=== PATIENT | male | born 1990 | race Caucasian/White ===

== ENCOUNTER 2021-06-12 11:02 | Outpatient (REF) | payer BC, MEDICAID, SELFPAY ==
--- NOTE | 2021-06-14 14:55 | MHC.AU.AHA ---
Adult Audiological Evaluation Date of Visit: 06/12/21 Otm Consultant Used: Not Applicable Reason for Appointment: Audiologic evaluation due to history of permanent bilateral hearing loss identified at age 1 years. Oscar has been using a very old right Oticon Personic [id number] hearing aid. He reports approximately 2 years ago he received, through his medical insurance, binaural Oticon OPN 2 ultra power qaqduasi-qh-fsu-ear hearing aids; however, he does not hear well with these aids and has gone back to wearing the old Personic aid. Oscar had gone back to the land measurer for adjustments with no improvement and he would like to obtain new binaural hearing aids. Previous Hearing Test Results: Not available for review Ear History: Family History of Hearing Loss?: Yes: Brother and Daughter Ear Infections in Childhood: Both Ears Bothersome Tinnitus/Ringing/Noises in Ears: Left Ear Ear used on the phone: Right Ear History of occupational noise exposure?: Yes History: History: No Medical History: Medical History: Migraines and Tobacco Use Medication List: None Hearing Instrument History- Right Ear: Contact Centre Supervisor: Oticon Model: Personic BTE Battery Size: 13 Repair Warranty: Otoscopy: Right Ear: Clear ear canal with dull/scarred tympanic membrane Left Ear: Unremarkable Tympanometry: Tympanometry performed due to: To assess integrity of the middle ear system Right Ear: Normal Middle Ear System (Type A) Left Ear: Normal Middle Ear System (Type A) Hearing Evaluation: Transducer(s) Used: Insert Earphones Bone Conduction Method: Conventional Audiometry Stimuli Used: Pure Tones Right Ear: Description of Hearing: Severe sensorineural hearing loss 250-3000 Hz, rising to a moderate loss at 8000 Hz Left Ear: Description of Hearing: Severe sensorineural hearing loss 250-3000 Hz, rising to a moderate loss at 8000 Hz Speech Recognition Threshold (SRT): Method Used: Monitored Live Voice Stimuli Used: Spondee Words Right Ear: 60 dB HL Left Ear: 60 dB HL Word Discrimination: Method: Recorded Lists Word Lists Used: NU-6 Right Ear: 76% at 85 dB HL Left Ear: 64% at 85 dB HL Most Comfortable Level (MCL): Right Ear: 85 dB HL Left Ear: 85 dB HL Recommendations: - Hearing aid maintenance performed today. - Trial with new binaural amplification is recommended. - A right Phonak Catherine UP BTE hearing aid was demonstrated in office today. Although sound quality is very different compared to his old analog hearing aid, Oscar reported improvement compared to the Oticon aids. - Oscar has different insurance now which does not cover hearing aids. He is advised to contact the [place] [facility] ([facility]) to determine if he is eligible through the program for new hearing aids. - If pursuing new hearing aids either through [facility] or purchasing aids on his own, he may schedule a Hearing Aid Evaluation appointment. - Audiological re-evaluation in one year. Will send a reminder card. Diagnosis: Primary Diagnosis: H90.3 Bilateral Sensorineural Hearing Loss Services Performed: Comprehensive Audiological Evaluation (CPT 21260) Tympanometry (CPT 77040) Signature: Provider: Papi Rudd, CCC-A
== END 2021-06-12 11:03 | disposition home or self-care (01) ==
LOC: HO.SH 11:02
PROVIDERS: Visit Provider Internal Medicine
DX: H90.3 Sensorineural hearing loss, bilateral (principal)
CPT/HCPCS: 92557; 92567

== ENCOUNTER 2022-07-10 09:26 | Outpatient (REF) | payer BC, OTHER, SELFPAY ==
--- NOTE | 2022-07-10 10:25 | MHC.AU.MED ---
Medical Clearance for Hearing Instrumentation Date: 07/10/22 Patient Name: Oscar Zuleta Date of : 1990 Primary Care Provider: Storm Castañeda MD We have seen your patient on 07/10/22 and have determined that they are a candidate for amplification (See accompanying report). Specifically, they would benefit from: Hearing aid use in both ears There is a statute that addresses Medical Evaluation Requirements prior to fitting a patient with a hearing aid. According to [place] statute [facility] CMR:6.03(1), (a) General. Except as provided in 265 CMR 6.03(1)(b), a network firewall engineer shall not sell a hearing aid unless the prospective user has presented to the network firewall engineer a written statement signed by a licensed physician that states that the patient's hearing loss has been medically evaluated and the patient may be considered a candidate for a hearing aid. The medical evaluation must have taken place within the preceding six months. Please note: Due to the [place] Statute referenced above, we cannot accept a signature other than that of a licensed physician. TARIFF INSPECTOR and PA signatures cannot be accepted. I am in agreement with the above recommendation. There is no medical contraindication for hearing instrumentation. Physician Signature Date Physician Name (Printed)
--- NOTE | 2022-07-10 10:46 | MHC.AU.FUR ---
Hearing Instrument Follow-Up Date of Visit: 07/10/22 Right Ear: Oticon Personic BTE Battery Size: 13 Type of Mold: Silicone skeleton Follow-Up Summary: Oscar returned to discuss new hearing aids. He currently uses his old Oticon Personic BTE on his right ear. He also has a pair of Oticon OPN 2 RITEs with ultra power receivers that he did not bring to this appointment. He reportedly never acclimated to them and prefers to use his old BTE hearing aid. His old hearing aid recently broke at the junction between the hearing aid and knob to thread on the tone hook. Oscar reported he has glued the pieces back together and it has been working ever since. Recommended cleaning and tubing change but explained cannot be responsible if hearing aid breaks. Oscar did not want a cleaning or tubing change at this time. He reported that his insurance is changing September 09, 2022 and would like to wait to pursue new hearing aids to utilize a better hearing aid benefit through the new insurance. Offered a loaner to use in the meantime; however, Oscar did not want to risk transferring his earmold and breaking the Personic hearing aid. Recommendations: Medical clearance will be requested from PCP. Oscar will call at the beginning of the year with new insurance information. Once benefits are verified, he will schedule an appointment for a hearing aid evaluation. Oscar knows his hearing test is valid for six months. Diagnosis Code(s): Primary Diagnosis: H90.3 Bilateral Sensorineural Hearing Loss Signature: Provider: Luis A Browning, [facility]
== END 2022-07-10 09:27 | disposition home or self-care (01) ==
LOC: HO.SH 09:26
PROVIDERS: Visit Provider Internal Medicine
DX: Z01.118 Encounter for examination of ears and hearing with other abnormal findings (principal); H90.3 Sensorineural hearing loss, bilateral
CPT/HCPCS: 92557

== ENCOUNTER 2022-09-24 09:31 | Outpatient (REF) | payer BC, OTHER, SELFPAY ==
--- NOTE | 2022-09-28 13:08 | MHC.AU.HA1 ---
Hearing Aid Evaluation Date of Visit: 09/24/22 Historical Information: Description of Hearing: Bilateral severe sensorineural hearing loss from 250-4000 Hz rising to moderate sensorineural hearing loss at 8000 Hz with 76- 80% speech discrimination at 100 dB HL. Current personal amplification information, if applicable: Right - Oticon Personic BTE. Summary: Patient reports he received Oticon OPN 2 RITE aids through his insurance in 2019, but was never able to used to them so he has continued to use his old Personic aid in the right ear. Due to the age of his current aid, the degree of his hearing loss, and the fact he is only using one aid, new binaural power hearing aids are recommended to better facilitate communication. Advise Phonak power aids as the software is easier to manipulate to change processing of aids to be more like his current aid. Hearing Aid Prescription: Based on the individual?s shared listening needs, communication environments, dexterity, desire for connectivity, and personal preferences, the following prescription for amplification has been made: Right ear: Make, Model, Color: Phonak Audeo L 70-R Black Battery Size: Rechargeable Family Resource Management Professor/Slim Tube: #2 UP Type of Earmold/Dome/CShell/SlimTip: Phonak Canal Lock C-Shell Left ear:Left ear prescription to be same as Right Hearing Aid above: Make, Model, Color: Phonak Audeo L 70-R Black Battery Size: Rechargeable Family Resource Management Professor/Slim Tube: #2 UP Type of Earmold/Dome/CShell/SlimTip: Phonak Canal Lock C-Shell Plan of Care: Patient wishes to purchase hearing aids as prescribed Action Taken/Action Needed:Earmold Impressions Taken Hearing Instrument Fitting to be scheduled when materials arrive Comments: Medical Clearance is in chart Primary Diagnosis: H90.3 Bilateral Sensorineural Hearing Loss Signature:Provider: Luis A Rudd, [facility]
== END 2022-09-24 09:32 | disposition home or self-care (01) ==
LOC: HO.HAP 09:31
PROVIDERS: Visit Provider Internal Medicine
DX: Z46.1 Encounter for fitting and adjustment of hearing aid (principal); H90.3 Sensorineural hearing loss, bilateral
CPT/HCPCS: 92591; V5275

== ENCOUNTER 2022-10-22 09:33 | Outpatient (REF) | payer BC, OTHER, SELFPAY ==
--- NOTE | 2022-10-22 09:37 | MHC.AU.NMH ---
Hearing Aid Delivery Receipt: Third Constitution Party Payor [facility] type [place] [facility] Other: Date of Fitting: End of Adjustment Period: 30 days from date of fitting Azure Developer: Right Ear: Left Ear: Make, Model, Serial Number and Color: Phonak Audeo L 70-R Black Serial #[id number] Make, Model, Serial Number and Color: Phonak Audeo L 70-R Black Serial #[id number] Ball Warper Tender/Slim Tube: #2 UP Ball Warper Tender/Slim Tube: #2 UP Earmold/Dome/CShell/SlimTip: Phonak Canal Lock C-Shell #[id number] warranty 01/07/2023 Earmold/Dome/CShell/SlimTip: Phonak Canal Lock C-Shell #[id number] warranty 01/07/2023 Type of Wax Guard: CeruShield Disk Type of Wax Guard: CeruShield Disk Battery Size: Rechargeable Battery Size: Rechargeable Chemical Inspector Repair Warranty: 01/08/2026 Chemical Inspector Repair Warranty: 01/08/2026 Chemical Inspector Loss and Damage Warranty: 01/08/2026 Chemical Inspector Loss and Damage Warranty: 01/08/2026 [facility] Service Agreement ends one year from date of fitting on? 10/22/2023 [facility] Service Agreement ends one year from date of fitting on 10/22/2023 Accessories/Assistive Technology: Following the expiration of [facility]?s service agreement, charges for items and services listed above are billed at the usual and customary rate. *If coverage by third democrat payor exists, medically necessary modifications, repairs, etc. will be billed to said third democrat payor. If there is no third democrat payor eligibility beyond the service agreement or tool worker warranty periods, items will be billed per usual and customary rates and payment is expected at the time of service. Hearing aids that are lost or damaged beyond repair cannot be returned for credit, and the synchronous motor assembler is liable for the full purchase arriaga. My signature below acknowledges that I have read and understand this hearing aid contract and have received the goods and services out lined above. ?Date? Home Address: ? PATIENT STICKER ? This hearing aid will not restore normal hearing nor will it prevent further hearing loss. The sale of a hearing aid is restricted to those individuals who have obtained a medical evaluation from a licensed physician or marketing automation analyst. A fully informed adult whose tenriism or personal beliefs preclude consultation with a physician may waive the requirement of a medical evaluation. The exercise of such a waiver is not in your best health interest and its use is strongly discouraged. It is also required that a person under the age of eighteen years obtain an evaluation by an child and family therapist in addition to the medical evaluation before a hearing aid can be sold to such person. Shameka Young,Title XV,Chapter 93:74
== END 2022-10-22 09:34 | disposition home or self-care (01) ==
LOC: HO.HAP 09:33
PROVIDERS: Visit Provider Internal Medicine
DX: Z46.1 Encounter for fitting and adjustment of hearing aid (principal); H90.3 Sensorineural hearing loss, bilateral
CPT/HCPCS: V5011; V5020; V5160; V5261; V5264

== ENCOUNTER 2022-11-15 10:40 | Outpatient (REF) | payer BC, OTHER, SELFPAY ==
--- NOTE | 2022-11-16 13:21 | MHC.AU.HA3 ---
Hearing Instrument Follow-Up- Binaural Date of Visit: 11/15/22 Right Ear: Neal, Model, Color, Serial Number: Devin Barrientos L 70-R Black Serial #[id number] Cardiology Specialist Repair Warranty: 01/08/2026 Cardiology Specialist Loss and Damage Warranty: 01/08/2026 [facility] Service Plan: 10/22/2023 Battery Size: Rechargeable Piano Sounding Board Matcher/Slim Tube: #2 UP Earmold/Dome/CShell/SlimTip:Phonak Canal Lock C-Shell #[id number] remake warranty 01/07/2023 Type of Wax Guard: CeruShield Disk Dispensed By: [facility], Date of Fittin10/22/2022 Left Ear: Neal, Model, Color, Serial Number: Devin Ruggieroo L 70-R John Serial #[id number] Cardiology Specialist Repair Warranty: 01/08/2026 Cardiology Specialist Loss and Damage Warranty: 01/08/2026 [facility] Service Plan: 10/22/2023 Battery Size: Rechargeable Piano Sounding Board Matcher/Slim Tube: #2 UP Earmold/Dome/CShell/SlimTip: Phonak Canal Lock C-Shell #[id number] remake warranty 01/07/2023 Type of Wax Guard: CeruShield Disk Dispensed By: [facility], Date of Fittin10/22/2022 Follow-Up Summary: Hearing aid follow-up: Patient has switched back to using his Oticon Personic BTE. He felt he was hearing worse with the new hearing aids. At work, he felt machinery sounded much louder than before, and that people sounded like they were far away. At home, he has been having more difficulty hearing the television and finds that other sounds like running water or the vacuum seem to overpower and muffle everything else. He feels he hears best with them when he is outside. He has been constantly using the rachel to make adjustments to suit the needs of each situation throughout the day. Patient has been using linear analog hearing aids since he was 1 years old. In [employer], we went through all the programming algorithms to see which one he liked the best. He preferred NAL-NL 1. Raised the overall gain until patient felt it was comfortable. Recommendations: He will try the hearing aids again and follow-up in a couple weeks. If he still does not like them, we could explore other hearing aid options while he is still in the trial period. Diagnosis Code(s): Primary Diagnosis: H90.3 Bilateral Sensorineural Hearing Loss Signature: Provider: Luis A King, CCC-A
== END 2022-11-15 10:41 | disposition home or self-care (01) ==
LOC: HO.HAP 10:40
PROVIDERS: Visit Provider Internal Medicine
DX: Z13.89 Encounter for screening for other disorder (principal)

== ENCOUNTER 2022-12-11 12:31 | Outpatient (REF) | payer BC, OTHER, SELFPAY ==
--- NOTE | 2022-12-11 13:45 | MHC.AU.HA3 ---
Hearing Instrument Follow-Up- Binaural Date of Visit: 12/11/22 Right Ear: Make, Model, Color, Serial Number: Phonak Bhumikaeo L 70-R Black Serial #[id number] Erp Business Analyst Repair Warranty: 01/08/2026 Erp Business Analyst Loss and Damage Warranty: 01/08/2026 [facility] Service Plan: 10/22/2023 Battery Size: Rechargeable Station Detective/Slim Tube: #2 UP Earmold/Dome/CShell/SlimTip:Phonak Canal Lock C-Shell #[id number] remake warranty 01/07/2023 Type of Wax Guard: CeruShield Disk Dispensed By: [facility] Date of Fittin10/22/2022 Left Ear: Make, Model, Color, Serial Number: Phonak Bhumikaeo L 70-R Black Serial #[id number] Erp Business Analyst Repair Warranty: 01/08/2026 Erp Business Analyst Loss and Damage Warranty: 01/08/2026 [facility] Service Plan: 10/22/2023 Battery Size: Rechargeable Station Detective/Slim Tube: #2 UP Earmold/Dome/CShell/SlimTip: Phonak Canal Lock C-Shell #[id number] remake warranty 01/07/2023 Type of Wax Guard: CeruShield Disk Dispensed By: [facility] Date of Fittin10/22/2022 Follow-Up Summary: Patient continues to have significant difficulty with the sound quality and reports less clarity of speech than previous. [facility] Jillian connected remotely. Made several changes including (but also more) going back to Phonak Adaptive Contrast fitting formula, increasing and decreasing the MPO for individual frequencies to be close to the black line (maximum level) to decrease potential of distortion yet be louder for patient. Added Manual Speech in Noise and Speech in Loud Noise programs. Patient will try and scheduled follow-up. Extended Trial Period to 02/07/2023 per Kelly Diagnosis Code(s):Primary Diagnosis: H90.3 Bilateral Sensorineural Hearing Loss Signature:Provider: Luis A Rudd, [facility]
== END 2022-12-11 12:32 | disposition home or self-care (01) ==
LOC: HO.HAP 12:31
PROVIDERS: Visit Provider Internal Medicine
DX: Z13.89 Encounter for screening for other disorder (principal)

== ENCOUNTER 2023-01-21 12:56 | Outpatient (REF) | payer OTHER, BC, SELFPAY | END 2023-01-21 12:57 | disposition home or self-care (01) | LOC: HO.HAP 12:56 | PROVIDERS: Visit Provider Internal Medicine | DX: Z13.89 Encounter for screening for other disorder (principal) ==

== ENCOUNTER 2023-01-31 13:02 | Outpatient (REF) | payer BC, OTHER, SELFPAY | END 2023-01-31 13:03 | disposition home or self-care (01) | LOC: HO.HAP 13:02 | PROVIDERS: Visit Provider Internal Medicine | DX: Z13.89 Encounter for screening for other disorder (principal) ==